=== PATIENT | male | born 1975 | race Caucasian/White ===

== ENCOUNTER 2023-07-20 04:32 | Day surgery (SDC) | payer OTHER ==
[2023-07-14 11:09] VITALS: BMI 28.7
[2023-07-20 08:26] VITALS: TEMP 97.7
[2023-07-20 08:52] VITALS: PULSE 72; RESP 19
[2023-07-20 08:58] VITALS: BP 118/75
== END 2023-07-20 09:15 | disposition home or self-care (01) ==
LOC: JASU-ENDO 04:32
PROVIDERS: ATTEND Internal Medicine Gastroenterology
PROC: 0DJD8ZZ Inspection of Lower Intestinal Tract, Via Natural or Artificial Opening Endoscopic (ICD-10-PCS; principal; 2023-07-20 08:00)
DX: Z12.11 Encounter for screening for malignant neoplasm of colon (principal); K64.8 Other hemorrhoids
CPT/HCPCS: 82962